=== PATIENT | female | born 1990 | race Caucasian/White ===

== ENCOUNTER → 2018-10-03 10:41 | Outpatient (CLI) | payer OTHER ==
[2018-10-06 15:20] LABS: ANTIGLIADIN IGA 11 units (0-19); ANTIGLIADIN IGG 9 units (0-19)
[2018-10-07 05:16] LABS: ENDOMYSIAL ANTIBODY IGA Negative (Negative)
== END | disposition home or self-care (01) ==
LOC: D.LAB 10:15
PROVIDERS: ATTEND Internal Medicine Gastroenterology
DX: D72.820 Lymphocytosis (symptomatic) (principal)